=== PATIENT | female | born 1990 | race Two or more races ===

== ENCOUNTER 2018-07-08 19:39 | Emergency (ER) | payer OTHER ==
[~2018-07-08] VITALS: Ht 170.2 cm; Wt 83.9 kg
--- NOTE | 2018-07-08 22:35 | NUR ---
PT A/OX4, RESPONSIVE TO VERBAL AND TACTILE STIMULI. PT C/O SKIN RASH ON CHEST AND BUE. PER PT, RASH STARTED 5 DAYS AGO AND HAS NOT SUBSIDED. UPON ASSESSMENT, NO EDEMA NOTED. PT DENIES PAIN, C/P, SOB, N/V. VS WNL.
--- NOTE | 2018-07-08 22:38 | NUR ---
ELIE MCKEON AT BEDSIDE.
[2018-07-08 23:09] VITALS: BP 143/80
--- NOTE | 2018-07-08 23:10 | NUR ---
Patient discharged to home in stable conditon. Written and verbal after care instructions given. Patient verbalizes understanding of instructions. PT D/C WITH PRESCRIPTION. PT AMBULATED WITHOUT DIFFICULTY. ALL BELONGINGS WITH PT.
== END 2018-07-08 23:10 | disposition home or self-care (01) ==
LOC: ER 19:42
DX: L25.9 Unspecified contact dermatitis, unspecified cause (principal)
CPT/HCPCS: A4663

== ENCOUNTER 2019-03-02 22:43 | Emergency (ER) | payer OTHER ==
[~2019-03-02] VITALS: Ht 170.2 cm; Wt 90.7 kg
--- NOTE | 2019-03-02 23:00 | NUR ---
Patient arricved at the ER with complaint of runny nose and sneezing [id number]. Today feeling worse with headache, sorethroat and coughing. Patient reported taking allergy medication x1 week ago. Also took Acetaminophen at 2pm and 9pm today, as well as Sudafed in am. Came here for further evaluation. patient AAOx4. Able to speak full sentences. no acute respiratory distress. Lung CTA. No cardiovascular concern. No /GI concern. Bed in low and lock position. Fall precaution per protocol. ER MD at evaluation
--- NOTE | 2019-03-02 23:10 | NUR ---
Patient discharged to home in stable conditon. Written and verbal after care instructions given. Patient verbalizes understanding of instructions. aMBULATED FROM ER WITH STABLE GAIT. ALL BELONGINGS WITH PATIENT. VSS
[2019-03-02 23:11] VITALS: BP 104/73
== END 2019-03-02 23:12 | disposition home or self-care (01) ==
LOC: ER 22:43
DX: J40 Bronchitis, not specified as acute or chronic (principal)
CPT/HCPCS: A4663